=== PATIENT | male | born 1980 | race Caucasian/White ===

== ENCOUNTER 2016-08-29 18:55 | Emergency (ER) | payer OTHER ==
[~2016-08-29] VITALS: Ht 193 cm; Wt 200.7 kg
[~2016-08-29 18:55] MED LIST: ATARAX,VISTARIL25 MG PO; LISINOPRIL10 MG PO
[2016-08-29] MEDS ORDERED: ATENOLOL25 MG PO (20:53)
[2016-08-29] MEDS ORDERED: PRAVASTATIN SOD40 MG PO (20:53)
[2016-08-29] MEDS ORDERED: INDOCIN50 MG PO (20:55)
[2016-08-29] MEDS ORDERED: RISPERDAL2 MG PO (20:55)
[2016-08-29 21:25] LABS: HEMATOCRIT 38.8 % (38.0-50.0); MCH 28.8 PG (29.0-34.0); MCV 87.4 FL (86-99); MEAN PLAT.VOLUME 11.7 uM^3 (9.0-12.4); PLATELET COUNT 164 K/uL (156-360); RBC DIS.WIDTH-CV 13.3 % (11.8-14.6); RBC DIS.WIDTH-SD 40.9 % (39-53); RED BLOOD COUNT 4.44 M/uL (4.00-5.50); WHITE BLOOD COUNT 4.6 K/uL (4.1-10.2)
[2016-08-29 21:38] LABS: CHLORIDE 110 mEq/L (99-109); POTASSIUM 4.1 mEq/L (3.7-5.4); SODIUM 145 mEq/L (136-147)
[2016-08-29 21:40] LABS: GLUCOSE 78 mg/dL (70-99)
[2016-08-29 21:41] LABS: ANION GAP 9 MEQ/L (2-14)
[2016-08-29 21:42] LABS: TOTAL BILIRUBIN 0.3 mg/dL (0.0-1.0)
[2016-08-29 21:43] LABS: ALKALINE PHOSPHATASE 83 IU/L (3-129)
[2016-08-29 21:44] LABS: GFR ESTIMATE (CALCULATED) > 59 mL/min/
[2016-08-29 21:45] LABS: UREA NITROGEN (BUN) 21 mg/dL (9-23)
[2016-08-29 22:05] VITALS: BP 158/84
== END 2016-08-29 22:05 | disposition home or self-care (01) ==
LOC: EME 18:55 → RME 18:55
PROVIDERS: Nurse Practitioner Family
DX: R60.9 Edema, unspecified (principal); E78.5 Hyperlipidemia, unspecified; I10 Essential (primary) hypertension; Z87.891 Personal history of nicotine dependence
CPT/HCPCS: 80053; 85027; 93971; 99281; 99284